=== PATIENT | female | born 1935 | race Caucasian/White ===

== ENCOUNTER 2018-03-10 21:10 | Emergency (ER) | payer MEDICARE, BC ==
[2018-03-10] MEDS ORDERED: predniSONE 20 MG TAB ONE (21:44)
--- NOTE | 2018-03-10 21:59 | RAD ---
TWO VIEWS CHEST: History: Cough. FINDINGS: PA and lateral views obtained. The lungs are well aerated. No evidence of active intrathoracic diseas e is seen. No evidence of effusions, pneumonia, or pneumothorax seen. IMPRESSION: Normal two views chest. POS: [facility]
== END 2018-03-10 22:33 | disposition home or self-care (01) ==
LOC: SCSER 21:10
DX: R05 Cough (principal); G30.9 Alzheimer's disease, unspecified; F02.80 Dementia in other diseases classified elsewhere, unspecified severity, without behavioral disturbance, psychotic disturbance, mood disturbance, and anxiety; E03.9 Hypothyroidism, unspecified; M19.90 Unspecified osteoarthritis, unspecified site; F32.9 Major depressive disorder, single episode, unspecified; Z79.51 Long term (current) use of inhaled steroids
CPT/HCPCS: 71046; 93005; 94640; J7506; J7620

== ENCOUNTER 2018-06-04 14:07 | Emergency (ER) | payer MEDICARE, BC ==
[~2018-06-04 14:07] MED LIST: ISOVUE-370 76%-LOCM 1 ML ONE; Iopamidol 370 76% 50 ML VIAL FS ONE
[2018-06-04 15:09] LABS: Mean Corpuscular HGB CONC 33.8 g/dL (32.0-36.0); Mean Corpuscular Hemoglobin 31.6 pg (27.0-31.0); Mean Corpuscular Volume 93.5 fL (78.0-98.0); Mean Platelet Volume 7.8 fL (7.4-10.4); Platelet Count 225 thou/uL (130-400); RBC Distribution Width 14.3 % (11.5-14.5); Red Blood Cell (RBC) Count 4.44 mill/uL (4.20-5.40); White Blood Cell (WBC) Count 13.6 thou/uL (4.8-10.8)
[2018-06-04 15:25] LABS: ALT (SGPT) 21 U/L (8-55); AST (SGOT) 29 U/L (5-34); Albumin 4.2 g/dL (3.4-4.8); Alkaline Phosphatase 84 U/L (40-150); Anion Gap 11 mmol/L (10-20); BUN (Urea Nitrogen) 26 mg/dL (9.8-20.1); Bilirubin, Total 0.6 mg/dL (0.2-1.2); Calc. Creatinine Clearance 0 mL/min (70-130); Carbon Dioxide 28 mmol/L (23-31); Chloride 103 mmol/L (98-107); Estimated GFR-MDRD 48; Globulin 4.1 g/dL (2.4-3.5); Glucose 109 mg/dL (83-110); Potassium 4.6 mmol/L (3.5-5.1); Protein, Total 8.3 g/dL (6.0-8.3); Sodium 137 mmol/L (136-145)
[2018-06-04 15:33] LABS: Band 1 % (5-11); Eosinophils 2 % (0-10); Lymphocytes 17 % (21-51); MDiff Complete? YES; Monocytes 8 % (0-10); Neutrophil 69 % (42-75); PLT Morphology Comment Appears Adequate; RBC Morphology Normal; Reactive Lymphocytes 2 % (0-10)
[2018-06-04 15:51] LABS: Bilirubin Negative (Negative); Blood, Urine Negative (Negative); Glucose, Urine (Dipstick) Negative (Negative); Leukocyte Negative (Negative); Nitrite Negative (Negative); Protein, Urine (Dipstick) Negative (Neg-Trace); Urobilinogen 0.2 mg/dL (0.2-1.0); pH, Urine 5.5 (5.0-9.0)
[2018-06-04 15:53] LABS: Clarity Clear (Clear); Specific Gravity, Urine 1.031 (1.002-1.036)
--- NOTE | 2018-06-04 18:54 | CT ---
CT ABDOMEN WITH CONTRAST CT PELVIS WITH CONTRAST: DATE: 06/04/2018 TIME: 5:10 p.m. HISTORY: An 82-year-old female with left lower quadrant abdominal pain and leukocytosis. COMPARISON: None. TECHNIQUE: IV injection of iodinated contrast media: Isovue-370 70 mL Oral contrast media: Isovue p.o. FINDINGS: There is prominent fat stranding, representing edema, in the left lower quadrant, at the pelvic inlet , surrounding a thickened segment of proximal sigmoid colon, representing acute diverticulitis. Many centimeters distal to that, in the more distal sigmoid colon, there is a segment of mural thicke abraham without much surrounding fat stranding/edema. There is a large number of diverticula throughout the sigmoid colon. There is no small bowel dilation. The urinary bladder, bilateral kidneys, adrenals, pancreas, liver, and spleen demonstrate no major pathology. There is no small bowel dilation. The lung bases are gr ossly clear. No pneumoperitoneum. No abdominal aortic aneurysm. The uterus is surgically absent. IMPRESSION: 1. Acute proximal sigmoid colonic diverticulitis. 2. Segment of mural thickening in the more distal-mid sigmoid colon. This is nonspecific, but one p ossibility is colon cancer. Recommend colonoscopy or sigmoidoscopy, if the patient has not had one w ithin one year. 3. Colonic diverticulosis. 4. Status post hysterectomy. S[place]ANE [place] POS: [facility]
== END 2018-06-04 19:15 | disposition home or self-care (01) ==
LOC: ERS 14:07
DX: K57.32 Diverticulitis of large intestine without perforation or abscess without bleeding (principal); K63.89 Other specified diseases of intestine; E03.9 Hypothyroidism, unspecified; F32.9 Major depressive disorder, single episode, unspecified
CPT/HCPCS: 36415; 74177; 80053; 81003; 85025

== ENCOUNTER 2019-09-11 21:57 | Inpatient (IN) | payer MEDICARE, BC ==
[2019-09-11] MEDS ORDERED: metroNIDAZOLE 500 MG/100 ML BAG ONE (23:05)
[2019-09-11 23:13] LABS: ALT (SGPT) 12 U/L (8-55); AST (SGOT) 15 U/L (5-34); Albumin 3.5 g/dL (3.4-4.8); Alkaline Phosphatase 64 U/L (40-110); Anion Gap 12 mmol/L (10-20); BUN (Urea Nitrogen) 18 mg/dL (9.8-20.1); Bilirubin, Total 0.6 mg/dL (0.2-1.2); Calc. Creatinine Clearance 0 mL/min (70-130); Calcium 10.1 mg/dL (7.8-10.44); Carbon Dioxide 26 mmol/L (23-31); Chloride 103 mmol/L (98-107); Estimated GFR-MDRD 60; Globulin 3.6 g/dL (2.4-3.5); Glucose 102 mg/dL (83-110); Potassium 3.7 mmol/L (3.5-5.1); Protein, Total 7.1 g/dL (6.0-8.3); Sodium 137 mmol/L (136-145)
[2019-09-11 23:18] LABS: Iron 138 ug/dL (50-170); Iron Binding Capacity, Total 221 mcg/dL (265-497)
[2019-09-11 23:20] LABS: Platelet Count 25 thou/uL (130-400)
[2019-09-11 23:25] LABS: Band 1 % (5-11); Hemoglobin 7.9 g/dL (12.0-16.0); Lymphocytes 91 % (21-51); MDiff Complete? YES; Mean Corpuscular HGB CONC 35.3 g/dL (32.0-36.0); Mean Corpuscular Hemoglobin 36.7 pg (27.0-31.0); Mean Platelet Volume 9.2 fL (7.4-10.4); Monocytes 7 % (0-10); Neutrophil 1 % (42-75); RBC Distribution Width 18.6 % (11.5-14.5); Red Blood Cell (RBC) Count 2.16 mill/uL (4.20-5.40)
[2019-09-12 02:04] VITALS: BMI 36.1
[2019-09-12] MEDS ORDERED: Ondansetron PF 4 MG/2 ML Vial IVP PRN ×2 (03:05→05:11)
[2019-09-12] MEDS ORDERED: Acetaminophen 325 MG TAB PO PRN (03:05)
[2019-09-12] MEDS ORDERED: Ondansetron ODT 4 MG TAB SL PRN (03:05)
[2019-09-12] MEDS ORDERED: Ondansetron ODT 4 MG TAB PO PRN (05:11)
[2019-09-12] MEDS ORDERED: hydrALAZINE 20 MG/ML VIAL SLOW IVP PRN (05:11)
[2019-09-12] MEDS ORDERED: Acetaminophen 500 MG TAB PO PRN (05:11)
[2019-09-12] MEDS: Levothyroxine 150 MCG TAB PO SCH (05:49)
[2019-09-12] MEDS: Sodium Chloride 0.9% 1,000 ML IV SCH ×2 (05:49→20:15)
[2019-09-12 06:33] LABS: Hemoglobin 7.2 g/dL (12.0-16.0); Mean Corpuscular HGB CONC 34.4 g/dL (32.0-36.0); Mean Corpuscular Hemoglobin 36.4 pg (27.0-31.0); Mean Platelet Volume 8.8 fL (7.4-10.4); Platelet Count 22 thou/uL (130-400); RBC Distribution Width 18.7 % (11.5-14.5); Red Blood Cell (RBC) Count 1.97 mill/uL (4.20-5.40); White Blood Cell (WBC) Count 2.8 thou/uL (4.8-10.8)
[2019-09-12] MEDS: Citalopram 20 MG TAB PO SCH (08:22)
[2019-09-12] MEDS: metroNIDAZOLE 500 MG in Premix Bag 1 BAG IVPB SCH ×2 (08:23→18:01)
[2019-09-12] MEDS: Folic Acid 1 MG TAB PO SCH (08:23)
[2019-09-12] MEDS: Famotidine 20 MG TAB PO SCH (08:23)
[2019-09-12 08:54] LABS: Differential Comment Immature Cell(s); Eosinophils 1 % (0-10); Lymphocytes 76 % (21-51); MDiff Complete? YES; Monocytes 15 % (0-10); Myelocyte 1 % (0-0); Neutrophil 1 % (42-75); Platelet Morphology Comment Appears Increased; Polychromasia SLIGHT = 2-3 cells (100X) (0-2/hpf); Reactive Lymphocytes 1 % (0-10); Reflex for Review?? NO
[2019-09-12] MEDS ORDERED: FLU VACC TS2019-20(65YR UP)/PF 180 MCG/0.5 ML SYRINGE IM ONE (09:00)
[2019-09-12] MEDS ORDERED: Prevnar 13-Val Conj/PF 0.5 ML SYRINGE IM ONE (09:00)
[2019-09-12] MEDS: Trospium 20 MG TAB PO SCH ×2 (10:31→20:19)
--- NOTE | 2019-09-12 10:46 | HP ---
PRIMARY CARE PROVIDER: Reji Paula MD PRIMARY FIBER PICKER: Bib Bedoya MD CHIEF COMPLAINT: Abdominal pain. HISTORY OF PRESENT ILLNESS: This is an 84-year-old female, who initially presented to [facility] Emergency Department, complaining of fatigue, abdominal pain, and one episode of dark stool at home. The patient has felt generally weak over the last several days, culminating into her visit in the emergency room. The patient admits to abdominal cramping on the left lower aspect of the abdomen with associated generalized weakness and decreased oral intake. The patient denies any recent change to her chronic medication regimen, but she does receive Cimzia injections with her multisensor intelligence officer monthly. The patient admits to history of psoriatic arthritis, on suppressive therapy with methotrexate and Cimzia. The patient denied any recent travel history, trauma or family members with similar symptoms. In the emergency room, the patient underwent evaluation showing evidence of colitis in the sigmoid region. The patient received IV ciprofloxacin and Flagyl in addition to intravenous fluids. The patient was transferred to the medical floor for further evaluation. PAST MEDICAL HISTORY: 1. Hypothyroidism. 2. Psoriatic arthritis. 3. Cataracts. 4. Basal cell carcinoma of the nose. 5. Anxiety/depression. PAST SURGICAL HISTORY: 1. Status post bilateral cataract removal. 2. Status post bladder and rectal repair. 3. Status post basal cell carcinoma resection of the nose. 4. Status post right breast lumpectomy. 5. Status post left foot and ankle reconstruction. 6. Status post appendectomy. 7. Status post cholecystectomy. 8. Status post hysterectomy. 9. Status post bilateral total knee arthroplasty. CURRENT MEDICATIONS: 1. Citalopram 20 mg p.o. daily. 2. Synthroid 150 mg p.o. daily. 3. Detrol LA 4 mg p.o. daily. 4. Omeprazole 40 mg p.o. daily. 5. Folic acid 1 mg p.o. daily. 6. VESIcare 10 mg p.o. daily. 7. Prednisone 5 mg p.o. p.r.n. 8. Methotrexate 25 mg intramuscular weekly. 9. Cimzia. ALLERGIES: PENICILLIN AND SULFA. FAMILY HISTORY: No inheritable disease per the patient report. SOCIAL HISTORY: The patient resides in [place], [place] with her daughter. Ambulates with use of a rolling walker. No current alcohol, tobacco, or illicit drug use. REVIEW OF SYSTEMS: CONSTITUTIONAL: Negative for weight loss or gain, ability to conduct usual activities. SKIN: Negative for rash, itching. EYES: Negative for double vision, pain. ENT/MOUTH: Negative for nose bleeding, neck stiffness, pain, tenderness. CARDIOVASCULAR: Negative for palpitations, dyspnea on exertion, orthopnea. RESPIRATORY: Negative for shortness of breath, wheezing, cough, hemoptysis, fever or night sweats. GASTROINTESTINAL: Negative for poor appetite, abdominal pain, heartburn, nausea, vomiting, constipation, or diarrhea. GENITOURINARY: Negative for urgency, frequency, dysuria, nocturia. MUSCULOSKELETAL: Negative for pain, swelling. NEUROLOGIC/PSYCHIATRIC: Negative for anxiety, depression. ALLERGY/IMMUNOLOGIC: Negative for skin rash, bleeding tendency. Otherwise, negative except as stated per HPI. PHYSICAL EXAMINATION: VITAL SIGNS: On admission, blood pressure 173/71, pulse 89, respiratory rate 22, temperature 99.3 degrees Fahrenheit, and O2 saturation 93% on room air. GENERAL APPEARANCE: This is an 84-year-old female, alert and oriented x3, pleasant, responsive, in no acute distress. HEENT: Pupils are equal, round, and reactive to light and accommodation. Extraocular muscles are intact. No scleral icterus. No conjunctival injection. Nares patent. OP is clear. Teeth in fair repair. NECK: Supple. No cervical adenopathy. No thyromegaly. No carotid bruits. No JVD appreciated. Cervical spine with full active and passive range of motion. No meningeal signs noted. CHEST: Lungs are clear to auscultation bilaterally. CARDIOVASCULAR: S1 and S2 without noted murmur, rub, or gallop. ABDOMEN: Rounded, soft with tenderness to palpation in the left lower quadrant. No palpable mass. No rebound or guarding noted. Bowel sounds are positive in all 4 quadrants. EXTREMITIES: Warm and dry with fair turgor. No clubbing, cyanosis, or asymmetric edema appreciated. Pulses palpable distally at the dorsalis pedis, posterior tibial, and popliteal arteries bilaterally. Capillary refill less than 2 seconds. NEUROLOGIC: Cranial nerves 2 through 12 are grossly intact. No focal or lateralizing signs appreciated. PERTINENT LABORATORY AND X-RAY FINDINGS: Sodium 139, potassium 4.1, chloride 104, CO2 of 27, BUN 19, creatinine 0.98, glucose 119, and calcium 10.5. LFTs within normal limits. Lipase 12. Magnesium 1.8. Stool Hemoccult negative x1. Urinalysis positive for protein with trace ketones. BNP 23. CBC showed a white blood cell count of 2.5, hemoglobin 7.8, hematocrit 22.7, MCV 102, and platelet count 26 with 81% lymphocytes. ASSESSMENT AND PLAN: 1. Acute colitis/diverticulitis. The patient will be admitted to the medical floor. We will continue Levaquin 500 mg IV q.24 hours with additional Flagyl 500 mg IV q.8 hours. Continue intravenous normal saline at 75 mL/h. Consult GI Service for any further recommendations and management. 2. Pancytopenia, suspect secondarily to certolizumab. We will hold methotrexate and Cimzia. Consult Hematology Service for any further recommendations. Repeat CBC in the a.m. 3. Hypothyroidism. Resume levothyroxine 150 mcg p.o. daily. 4. Psoriatic arthritis. Continue general supportive management. 5. Prophylaxis. SCDs while in bed. Pepcid 20 mg p.o. b.i.d. 6. Code status is full. Surrogate medical decision maker is the patient's daughter. Job ID: [id number]
--- NOTE | 2019-09-12 16:27 | PDOC.HOSPP ---
- Subjective Encounter Date: 09/12/19 Encounter Time: 08:23 Subjective: 84 y/o female with psoriasis with diffuse arthritis on methotrexate and cimzia admitted with worsening generalized body aches as well as crampy abdominal pain associated with fatigue and poor oral intake. evaluation showed pancytopenia and CT abdominal showed features of colitis. Started on antibiotics and IVF. - Objective Vital Signs & Weight: Vital Signs (12 hours) Temp Pulse Resp BP BP Pulse Ox 09/12/19 13:00 98.1 F 80 20 128/64 94 L 09/12/19 08:10 94 L 09/12/19 08:09 98.0 F 78 22 H 136/62 94 L 09/12/19 05:11 92 L Weight Weight 224 lb Result Diagrams: 09/12/19 06:15 09/11/19 22:33 Hospitalist ROS - Medication Medications: Active Medications Generic Name Dose Route Start Last Admin Trade Name Freq PRN Reason Stop Dose Admin Citalopram Hydrobromide 20 mg 09/12/19 09:00 09/12/19 08:22 Celexa PO 20 mg DAILY LISSA Administration Famotidine 20 mg 09/12/19 09:00 09/12/19 08:23 Pepcid PO 20 mg 0900 LISSA Administration Folic Acid 1 mg 09/12/19 09:00 09/12/19 08:23 Folvite PO 1 mg DAILY LISSA Administration Levofloxacin 500 mg/ Device 100 mls @ 100 mls/hr 09/12/19 06:00 09/12/19 05: 49 IVPB 100 mls 0600 LISSA Administration Metronidazole 500 mg/ Device 100 mls @ 100 mls/hr 09/12/19 08:00 09/12/19 08: 23 IVPB 100 mls 0800,1600,2359 LISSA Administration Sodium Chloride 1,000 mls @ 75 mls/hr 09/12/19 05:15 09/12/19 05:49 Normal Saline 0.9% IV 1,000 mls .[id number] LISSA Administration Levothyroxine Sodium 150 mcg 09/12/19 06:00 09/12/19 05:49 Synthroid PO 150 mcg 0600 LISSA Administration Trospium 20 mg 09/12/19 09:00 09/12/19 10:31 Trospium PO 20 mg BID LISSA Administration - Exam General Appearance: awake alert General - other findings: obese ENT: normocephalic atraumatic Neck: supple Heart: RRR Respiratory: no wheezes, no rales, no ronchi, normal chest expansion Respiratory - other findings: fair air entry with some transmitted sound Gastrointestinal: soft, non-distended, normal bowel sounds Gastrointestinal - other findings: mild tenderness Extremities: no edema Neurological: cranial nerve grossly intact, no focal deficits Neurological - other findings: memory lapses noted Musculoskeletal: generalized weakness Musculoskeletal - other findings: generalized body tenderness Psychiatric: A&O x 3 Hosp A/P (1) Acute colitis Code(s): K52.9 - NONINFECTIVE GASTROENTERITIS AND COLITIS, UNSPECIFIED Status : Acute (2) Pancytopenia Code(s): D61.818 - OTHER PANCYTOPENIA Status: Acute (3) Hypothyroidism Code(s): E03.9 - HYPOTHYROIDISM, UNSPECIFIED Status: Acute (4) Psoriasis Code(s): L40.9 - PSORIASIS, UNSPECIFIED Status: Acute (5) Inflammatory arthritis Code(s): M19.90 - UNSPECIFIED OSTEOARTHRITIS, UNSPECIFIED SITE Status: Acute (6) Inflammatory polyarthritis Code(s): M06.4 - INFLAMMATORY POLYARTHROPATHY Status: Acute (7) Physical deconditioning Code(s): R53.81 - OTHER MALAISE Status: Acute - Plan Continue antibiotics. Await GI and Hematology review.
--- NOTE | 2019-09-12 20:53 | CON ---
DATE OF CONSULTATION: REASON FOR CONSULT: Pancytopenia. HISTORY OF PRESENT ILLNESS: Ms. Biggs is a pleasant 84-year-old female with a past medical history of psoriatic arthritis, who presented to the emergency room at [facility] with complaints of abdominal discomfort and fatigue. She apparently had some scans, which showed possible colitis. She also had a CBC, which showed pancytopenia. She was transferred to this facility for further workup. The patient has a history of psoriatic arthritis. She is on methotrexate and Cimzia monthly injection, which is administered by Dr. Kuo. She denies any history of pancytopenia. No recent fevers or chills. No new rash or itching. Denies any hemoptysis, hematochezia, or epistaxis. Repeat CBC on admission showed a white count of 3.0, hemoglobin of 7.9, MCV of 104, platelet count of 25,000. She had 91% lymphocytes, 1% neutrophils. She had some immature cells in her blood with 5% other cell types. Her B12 and folic acid were normal. Iron studies were okay. We were asked to see the patient regarding her pancytopenia. PAST MEDICAL HISTORY: 1. Psoriatic arthritis. 2. Hypothyroidism. 3. Anxiety and depression. 4. Basal cell carcinoma of the nose. PAST SURGICAL HISTORY: 1. Cataract removal. 2. Bladder repair. 3. Basal cell carcinoma removal. 4. Appendectomy. 5. Cholecystectomy. 6. Hysterectomy. 7. Knee surgery. ALLERGIES: TO PENICILLIN AND SULFA. HOME MEDICATIONS: 1. Citalopram. 2. Synthroid. 3. Dextro LA. 4. Prilosec. 5. Folic acid. 6. VESIcare. 7. Prednisone. 8. Methotrexate. 9. Cimzia. FAMILY HISTORY: No history of blood cancer. SOCIAL HISTORY: Single. Lives in [place], [place] with her daughter. No alcohol, tobacco, or illicit drug use. REVIEW OF SYSTEMS: CONSTITUTIONAL: No fever, chills, or night sweats. No recent weight loss or gain. EYES: No blurred or double vision. ENT: No pain, hoarseness, sore throat, or dysphagia. CV: No chest pain, palpitations, or syncope. RESPIRATORY: No shortness of breath, dyspnea on exertion, or orthopnea. GI: No nausea, vomiting, diarrhea, or constipation. Positive for abdominal pain. : No dysuria or hematuria. MUSCULOSKELETAL: No joint or back pain. SKIN: No rash or pruritus. HEMATOLOGICAL: No bleeding, bruising, or clotting. NEUROLOGIC: Positive for weakness, but no nausea, headache, numbness, tingling, or seizure activity. PHYSICAL EXAMINATION: VITAL SIGNS: Temperature is 98.0, pulse is 78, respiratory rate 22, blood pressure is 136/62, she is 94% on 1 L. GENERAL: This is an obese female, in no acute distress. HEENT: Normocephalic, atraumatic. Pupils are equal and reactive to light. NECK: Supple. CV: Regular rate and rhythm. LUNGS: Clear. ABDOMEN: Obese, but nontender. Bowel sounds are positive. EXTREMITIES: There is no clubbing or cyanosis. SKIN: There is no rash. HEMATOLOGIC: There are no petechiae. She does have a small bruise on her lower lip where she bit it. NEUROLOGIC: Nonfocal. PSYCHIATRIC: She is alert, oriented, and appropriate. PERTINENT LABORATORIES AND X-RAYS: Current WBCs 2.8, hemoglobin 7.2, hematocrit 20.9, platelet count is 22,000, 1% neutrophils, 76% lymphocytes, and 5% other cell types with immature cells in her blood. Sodium is 137, potassium 3.7, chloride 103, CO2 is 26, BUN is 18, creatinine 0.9, calcium 10. Iron 138, TIBC is 221, ferritin is 865, bilirubin 0.6, AST is 15, ALT is 12, alkaline phosphatase is 64, serum total protein 7.1, albumin 3.5, globulin 3.6. B12 is 456. Folate is 31. ASSESSMENT: 1. Pancytopenia. 2. Abdominal discomfort with a possible colitis. DISCUSSION: The patient has been seen by GI and her diet has been advanced. She remains on antibiotics. She has no history of pancytopenia. We discussed in detail the causes for that. She has a normal B12, so she has agreed to pursue pancytopenia further. We will send a flow on peripheral blood. Today, have the pathologist review her smear and plan for potential bone marrow biopsy on Sunday. This is discussed with the patient and Dr. Jean. Thank you for the consult. Job ID: [id number]
[2019-09-13] MEDS: metroNIDAZOLE 500 MG in Premix Bag 1 BAG IVPB SCH ×3 (00:01→16:55)
[2019-09-13] MEDS: Levothyroxine 150 MCG TAB PO SCH (05:44)
[2019-09-13] MEDS: Sodium Chloride 0.9% 1,000 ML IV SCH (05:48)
[2019-09-13] MEDS: Folic Acid 1 MG TAB PO SCH (08:07)
[2019-09-13] MEDS: Famotidine 20 MG TAB PO SCH (08:07)
[2019-09-13] MEDS: Citalopram 20 MG TAB PO SCH (08:07)
[2019-09-13] MEDS: Trospium 20 MG TAB PO SCH (08:44)
--- NOTE | 2019-09-13 10:21 | PDOC.MOPN ---
Interval History: she is hurting in her R shoulder and her L chest wall over the IV site. no current bleeding. 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 transfer to [facility] or leukemia center 2. midline or PICC line 3. follow cbc 4. BM biopsy here or at [facility]
[2019-09-13 13:07] LABS: Hemoglobin 6.9 g/dL (12.0-16.0); Platelet Count 23 thou/uL (130-400); RBC Distribution Width 18.8 % (11.5-14.5); Red Blood Cell (RBC) Count 1.87 mill/uL (4.20-5.40); White Blood Cell (WBC) Count 3.2 thou/uL (4.8-10.8)
[2019-09-13 13:23] LABS: ALT (SGPT) 12 U/L (8-55); AST (SGOT) 16 U/L (5-34); Albumin 3.3 g/dL (3.4-4.8); Alkaline Phosphatase 56 U/L (40-110); Anion Gap 11 mmol/L (10-20); BUN (Urea Nitrogen) 11 mg/dL (9.8-20.1); Bilirubin, Total 0.5 mg/dL (0.2-1.2); Calc. Creatinine Clearance 81 mL/min (70-130); Calcium 9.4 mg/dL (7.8-10.44); Carbon Dioxide 24 mmol/L (23-31); Chloride 105 mmol/L (98-107); Estimated GFR-MDRD 65; Globulin 3.3 g/dL (2.4-3.5); Glucose 111 mg/dL (83-110); Potassium 3.7 mmol/L (3.5-5.1); Protein, Total 6.6 g/dL (6.0-8.3); Sodium 136 mmol/L (136-145)
[2019-09-13 14:02] LABS: Anisocytosis SLIGHT = 6-15 cells (100X) (0-5/hpf); Band 6 % (5-11); Differential Comment Immature Cell(s); Eosinophils 1 % (0-10); Lymphocytes 40 % (21-51); MDiff Complete? YES; Macrocytosis SLIGHT = 6-15 cells (100X) (0-5/hpf); Monocytes 9 % (0-10); Neutrophil 4 % (42-75); Ovalocytes SLIGHT = 2-5 cells (100X) (0-1/hpf); Platelet Morphology Comment Appears Decreased; Polychromasia MODERATE = 3-4 cells (100X) (0-2/hpf); Reactive Lymphocytes 25 % (0-10); Tear Drops SLIGHT = 2-5 cells (100X) (0-1/hpf)
--- NOTE | 2019-09-13 15:02 | PDOC.HOSPP ---
- Subjective Encounter Date: 09/13/19 Encounter Time: 13:02 Subjective: 84 y/o female with psoriasis with diffuse arthritis on methotrexate and cimzia admitted with worsening generalized body aches as well as crampy abdominal pain associated with fatigue and poor oral intake. Evaluation showed pancytopenia and CT abdominal for questionable abdominal pain showed features of colitis. Started on antibiotics and IVF. Reports feeling stronger today. Concerned about getting her Cimzia on sunday. No fever, nausea, vomiting, abdominal pain or SOB. - Objective Vital Signs & Weight: Vital Signs (12 hours) Temp Pulse Resp BP Pulse Ox 09/13/19 08:00 99.1 F 83 18 100/57 L 92 L Weight Weight 224 lb Result Diagrams: 09/13/19 12:49 09/13/19 12:49 Hospitalist ROS - Medication Medications: Active Medications Generic Name Dose Route Start Last Admin Trade Name Freq PRN Reason Stop Dose Admin Citalopram Hydrobromide 20 mg 09/12/19 09:00 09/13/19 08:07 Celexa PO 20 mg DAILY LISSA Administration Famotidine 20 mg 09/12/19 09:00 09/13/19 08:07 Pepcid PO 20 mg 0900 ILSSA Administration Folic Acid 1 mg 09/12/19 09:00 09/13/19 08:07 Folvite PO 1 mg DAILY LISSA Administration Levofloxacin 500 mg/ Device 100 mls @ 100 mls/hr 09/12/19 06:00 09/13/19 05: 44 IVPB 100 mls 0600 LSISA Administration Metronidazole 500 mg/ Device 100 mls @ 100 mls/hr 09/12/19 08:00 09/13/19 08: 06 IVPB 100 mls 0800,1600,2359 LISSA Administration Sodium Chloride 1,000 mls @ 75 mls/hr 09/12/19 05:15 09/13/19 05:48 Normal Saline 0.9% IV 1,000 mls .[id number] LISSA Administration Levothyroxine Sodium 150 mcg 09/12/19 06:00 09/13/19 05:44 Synthroid PO 150 mcg 0600 LISSA Administration Trospium 20 mg 09/12/19 09:00 09/13/19 08:44 Trospium PO 20 mg BID LISSA Administration - Exam General Appearance: awake alert Eye: anicteric sclera ENT: normocephalic atraumatic, moist mucosa Neck: supple Heart: RRR, murmur present Respiratory: no wheezes, no ronchi, normal chest expansion Gastrointestinal: soft, non-tender, non-distended, normal bowel sounds Extremities: no cyanosis, no edema Extremities - other findings: mild joints pain especially both shoulder Skin: no rashes Neurological: cranial nerve grossly intact, no focal deficits Musculoskeletal: generalized weakness Psychiatric: normal affect, A&O x 3 Hosp A/P (1) Lymphoma Status: Acute (2) Acute colitis Code(s): K52.9 - NONINFECTIVE GASTROENTERITIS AND COLITIS, UNSPECIFIED Status : Acute (3) Pancytopenia Code(s): D61.818 - OTHER PANCYTOPENIA Status: Acute (4) Hypothyroidism Code(s): E03.9 - HYPOTHYROIDISM, UNSPECIFIED Status: Acute (5) Psoriasis Code(s): L40.9 - PSORIASIS, UNSPECIFIED Status: Acute (6) Inflammatory arthritis Code(s): M19.90 - UNSPECIFIED OSTEOARTHRITIS, UNSPECIFIED SITE Status: Acute (7) Inflammatory polyarthritis Code(s): M06.4 - INFLAMMATORY POLYARTHROPATHY Status: Acute (8) Physical deconditioning Code(s): R53.81 - OTHER MALAISE Status: Acute - Plan Evaluation and treatmenmt of lymphoma and pancytopenia as per oncology. Continue antibiotics. Diet as tolerated PT/OT eval and treat. Rehab screen. Discussed with GI. No endoscopic evaluation contemplated for now.
[2019-09-13 18:02] VITALS: BP 118/59; TEMP 99.9
--- NOTE | 2019-09-15 09:07 | CON ---
DATE OF CONSULTATION: 09/12/2019 REASON FOR CONSULTATION: Anemia, history of passing of stool and also abdominal CAT scan showing some sigmoid colitis. HISTORY OF PRESENT ILLNESS: Kalie Biggs is a very pleasant 84-year-old female who does see Dr. Reji Paula on a regular basis. She has psoriatic arthritis and does see Dr. Kuo in [place]. The patient takes Cimzia injection once a month. She says the arthritic pains are better for first 3 weeks, but usually after ,she has arthritic pain again. Unfortunately, she is not able to get more frequent doses, because of insurance. She is due for a Cimzia does this coming Sunday. The patient came to the ER with some vague abdominal pain and also saying that she is having some dark stool. She had a CBC done and was found to have anemia. In fact, she has pancytopenia. decreased. She is anemic, she is thrombocytopenic and also she has leukopenia. The MCV is high. The patient appears very comfortable. She denies abdominal pain, nausea, vomiting. Denies any hematochezia or passing any dark stools. The patient had abdominal CAT scan done in the ER and was found to have evidence of some colitis. However, the patient denies any diarrhea, any fever, any hematochezia or diarrhea stool. She says she feels hungry and she wants to eat. The patient admits have some mild memory impairment. She cannot tell me whether she had any colonoscopy in the past. She does not have any At present time, she appears very comfortable. abdominal pain. No dysphagia or odynophagia. No history of heartburn. . The patient had no stool today. Last BM was about 2 . MEDICAL ILLNESSES: 1. Psoriatic arthritis, on Cimzia injection once a month. 2. Hypothyroidism. 3. Cataract. 4. Basal cell carcinoma of the nose. 5. Depression. 6. Anxiety. PAST SURGICAL HISTORY: 1. Bilateral cataract surgery. 2. Bladder and rectal surgery. 3. Skin cancer, nose. 4. Lumpectomy of right breast. 5. Left foot and ankle surgery. 6. Appendectomy. 7. Cholecystectomy. 8. Hysterectomy. 9. Bilateral knee replacement. MEDICATIONS: 1. Citalopram 20 mg daily. 2. Synthroid 150 mg daily. 3. Detrol LA 4 mg daily .. 4. Omeprazole 40 mg daily .. 5. VESIcare 10 mg daily. 6. . 7. Methotrexate 25 mg intramuscular weekly. 8. Cimzia injections. ALLERGIES: PENICILLIN AND SULFA. SOCIAL HISTORY: Patient uses a walker to ambulate. Does not smoke. REVIEW OF SYSTEMS: 10-point system reviewed. CONSTITUTIONAL: HEAD: Chronic headache. EYES : No impaired vision or double vision. EARS: . LUNGS: No chronic coughing, hemoptysis. CARDIOVASCULAR: Denies any chest pain, palpitation, dyspnea, orthopnea, or PND. GI: Vague abdominal pain, but denies hematochezia. : No dysuria, hematuria or frequency. MUSCULOSKELETAL: weakness, but has poor . NEUROPSYCHIATRY: . PHYSICAL EXAMINATION: GENERAL: She is obese. She is a very pleasant, elderly female, appears very comfortable. She is awake and alert, communicative, but sometimes she forgets to . She admits having some mild memory impairment. VITAL SIGNS: She is afebrile. Pulse is 80, blood pressure is 128/64 . HEENT: Conjunctivae clear. NECK: Supple. No adenitis or thyromegaly. CARDIOVASCULAR: First and second heart sounds heard. LUNGS: Clear to auscultation. ABDOMEN: Soft to palpate. Abdomen is nondistended. Abdomen is nontender except for the left lower quadrant with very mild tenderness. No rebound or guarding. Bowel sounds normal. EXTREMITIES: Reveal no edema. LABORATORY DATA: Shows pancytopenia. WBC 2800, RBC count 1.97, hemoglobin 7, hematocrit 20, platelet 22,000 . Chemistry panel shows sodium 137, potassium 3.7, chloride 103 , bicarb 26, BUN 18, creatinine 0.90, glucose 102, iron is 138, TIBC 221, ferritin is 865, albumin is 3.5, globulin 3.6, AST 15, ALT 12, alkaline phosphatase is 64, . IMPRESSION: An 84-year-old female with generalized weakness, some vague abdominal pain. There is no history of hematochezia or melena. Admitting history and physical says that she has some melena, but patient denies having any rectal bleeding or hemorrhage. She is pancytopenic. 1. Her problems seems to be hematological and not GI related. 2. Recommend discontinue the clear liquid diet. 3. Regular diet. 4. We will need hematology input because of pancytopenia. Job ID: [id number]
--- NOTE | 2019-09-16 08:15 | DIS ---
DATE OF ADMISSION: 09/11/2019 DATE OF DISCHARGE: 09/13/2019 PRIMARY CARE PHYSICIAN: Reji Paula MD DISCHARGE DIAGNOSES: 1. Acute lymphoma. 2. Acute colitis. 3. Pancytopenia. 4. Hypothyroidism. 5. Psoriasis. 6. Inflammatory arthritis. 7. Physical deconditioning. 8. Obesity. CONSULTS: 1. Hematology-Oncology. 2. Gastroenterology. HOSPITAL COURSE: An 84-year-old female with psoriasis associated with diffuse arthropathy, on methotrexate and Cimzia, admitted with worsening generalized body aches as well as crampy abdominal pain associated with fatigue and poor oral intake. Evaluation with CT scan of the abdomen showed features of colitis. The patient also was found to have pancytopenia. The patient was started on broad-spectrum antibiotic therapy with ciprofloxacin and Flagyl with improvement. Hematology consult was obtained and further evaluation revealed features of acute lymphoma of unclear type. Following discussion with Hematology-Oncology, we decided that the patient should be transferred to a Cancer Center. Arrangements were made and the patient was subsequently transferred to [facility] in [place]. Note that Gastroenterology saw the patient during this hospitalization, but no invasive or endoscopic evaluation was recommended due to pancytopenia and severe thrombocytopenia. Job ID: [id number]
== END 2019-09-13 19:00 | disposition short-term general hospital (02) | DRG 391 ==
LOC: ERS 21:57 → ONC 23:28
PROVIDERS: ADMIT Family Medicine; ATTEND Family Medicine
DX: K52.9 Noninfective gastroenteritis and colitis, unspecified (principal); D61.811 Other drug-induced pancytopenia; C85.90 Non-Hodgkin lymphoma, unspecified, unspecified site; C95.00 Acute leukemia of unspecified cell type not having achieved remission; E03.9 Hypothyroidism, unspecified; F41.9 Anxiety disorder, unspecified; F32.9 Major depressive disorder, single episode, unspecified; Z96.653 Presence of artificial knee joint, bilateral; T45.1X5A Adverse effect of antineoplastic and immunosuppressive drugs, initial encounter; L40.50 Arthropathic psoriasis, unspecified; L40.9 Psoriasis, unspecified; M06.4 Inflammatory polyarthropathy; Z98.42 Cataract extraction status, left eye; Z90.49 Acquired absence of other specified parts of digestive tract; Z85.22 Personal history of malignant neoplasm of nasal cavities, middle ear, and accessory sinuses; Z98.41 Cataract extraction status, right eye; Z90.710 Acquired absence of both cervix and uterus
CPT/HCPCS: 36415; 36416; 80053; 82607; 82728; 82746; 83540; 83550; 85007; 85025; 85027; 86850; 86900; 86901; 88184; 96365; 96366; 96367; J0744; J1956